=== PATIENT | female | born 1995 | race Two or more races ===

== ENCOUNTER 2021-12-18 19:49 | Emergency (ER) | payer OTHER ==
[2021-12-18 19:57] VITALS: BP 126/72; PULSE 88; TEMP 98.4; BMI 24.2
== END 2021-12-18 20:55 | disposition home or self-care (01) ==
LOC: FER 19:49
DX: M54.50 Low back pain, unspecified (principal); V89.2XXA Person injured in unspecified motor-vehicle accident, traffic, initial encounter
CPT/HCPCS: 72050-TC-FY; 99283-25